=== PATIENT | female | born 1995 | race Caucasian/White ===

== ENCOUNTER 2016-12-22 01:18 | Emergency (ER) | payer BC ==
[2016-12-22] MEDS ORDERED: Lidocaine Viscous Sol 2% 15 ml UD Cup ONE (01:42)
[2016-12-22] MEDS ORDERED: Milk Of Magnesia 30 ML UDCUP ONE (01:42)
[2016-12-22] MEDS ORDERED: Mag-Al Plus 1200 MG/1200 MG/120 MG/30 ML UDCUP ONE (01:43)
== END 2016-12-22 01:44 | disposition home or self-care (01) ==
LOC: BURERS 01:18
DX: R11.2 Nausea with vomiting, unspecified (principal); E28.2 Polycystic ovarian syndrome; F17.210 Nicotine dependence, cigarettes, uncomplicated; Z79.899 Other long term (current) drug therapy
CPT/HCPCS: 99283

== ENCOUNTER 2017-02-01 16:05 | Emergency (ER) | payer BC ==
[2017-02-01] MEDS ORDERED: HYDROcodone/Acetaminophen 10/325 mg Tablet ONE (16:19)
[2017-02-01] MEDS ORDERED: Ibuprofen 800 MG TAB ONE (16:20)
--- NOTE | 2017-02-01 20:54 | RAD ---
RIGHT KNEE 3 VIEWS: ' Date: 02/01/17 No fracture, dislocation, or joint effusion was indicated. The joint space appears normal, as do the articular surfaces. IMPRESSION: No acute findings. POS: HOME
== END 2017-02-01 16:54 | disposition home or self-care (01) ==
LOC: BURERS 16:05
DX: S83.421A Sprain of lateral collateral ligament of right knee, initial encounter (principal); F41.9 Anxiety disorder, unspecified; F32.9 Major depressive disorder, single episode, unspecified; F17.210 Nicotine dependence, cigarettes, uncomplicated; X50.9XXA Other and unspecified overexertion or strenuous movements or postures, initial encounter

== ENCOUNTER 2017-06-16 21:51 | Emergency (ER) | payer BC ==
[2017-06-16] MEDS ORDERED: Azithromycin 250 MG TAB ONE (22:39)
== END 2017-06-16 22:40 | disposition home or self-care (01) ==
LOC: BURERS 21:51
DX: J20.9 Acute bronchitis, unspecified (principal); R07.81 Pleurodynia; E28.2 Polycystic ovarian syndrome; F17.210 Nicotine dependence, cigarettes, uncomplicated
CPT/HCPCS: 99284

== ENCOUNTER 2018-08-02 20:45 | Emergency (ER) | payer BC | END 2018-08-02 21:40 | disposition home or self-care (01) | LOC: BURERS 20:45 | DX: H72.92 Unspecified perforation of tympanic membrane, left ear (principal); F41.9 Anxiety disorder, unspecified; F32.9 Major depressive disorder, single episode, unspecified; F17.210 Nicotine dependence, cigarettes, uncomplicated | CPT/HCPCS: 99282 ==

== ENCOUNTER 2022-04-13 16:20 | Emergency (ER) | payer BC, OTHER, SELFPAY | END 2022-04-13 17:47 | disposition home or self-care (01) | LOC: BURERS 16:20 | DX: S63.501A Unspecified sprain of right wrist, initial encounter (principal); F17.210 Nicotine dependence, cigarettes, uncomplicated; X58.XXXA Exposure to other specified factors, initial encounter ==

== ENCOUNTER 2022-11-17 23:43 | Emergency (ER) | payer MEDICAID, OTHER ==
[2022-11-18 00:33] LABS: #Basophils 0.1 thou/uL (0.0-0.2); #Eosinphils 0.1 thou/uL (0.0-0.7); #Lymphocytes 3.3 thou/uL (1.20-3.40); #Monocytes 0.5 thou/uL (0.11-0.59); #Neutrophils 4.6 thou/uL (1.40-6.50); %Basophils 1.2 % (0.0-1.0); %Eosinophils 0.8 % (0.0-10.0); %Lymphocytes 38.9 % (21.0-51.0); %Monocytes 5.5 % (0.0-10.0); %Neutrophils 53.5 % (42.0-75.0); ALT (SGPT) 32 U/L (8-55); AST (SGOT) 23 U/L (5-34); Alkaline Phosphatase 56 U/L (40-110); Anion Gap 16 mmol/L (10-20); BUN (Urea Nitrogen) 10 mg/dL (7.0-18.7); Bilirubin, Total 0.4 mg/dL (0.2-1.2); Calc. Creatinine Clearance 0 mL/min (70-130); Calcium 8.7 mg/dL (7.8-10.44); Carbon Dioxide 19 mmol/L (22-29); Chloride 109 mmol/L (98-107); Estimated GFR 96; Globulin 3.2 g/dL (2.4-3.5); Glucose 132 mg/dL (70-105); Hematocrit 36.9 % (36.0-47.0); Hemoglobin 12.9 g/dL (12.0-16.0); Mean Corpuscular HGB CONC 34.9 g/dL (32.0-36.0); Mean Corpuscular Hemoglobin 29.8 pg (27.0-31.0); Mean Corpuscular Volume 85.4 fl (78.0-98.0); Mean Platelet Volume 8.3 fL (7.4-10.4); Platelet Count 231 10x3/uL (130-400); Potassium 3.9 mmol/L (3.5-5.1); Protein, Total 7.2 g/dL (6.0-8.3); RBC Distribution Width 11.7 % (11.5-14.5); Red Blood Cell (RBC) Count 4.32 mill/uL (4.20-5.40); Sodium 140 mmol/L (136-145); Troponin I Less than 0.010 ng/mL (< 0.028); White Blood Cell (WBC) Count 8.5 10x3/uL (4.8-10.8)
== END 2022-11-18 01:20 | disposition home or self-care (01) ==
LOC: BURERS 23:43
DX: I49.3 Ventricular premature depolarization (principal); F17.210 Nicotine dependence, cigarettes, uncomplicated
CPT/HCPCS: 71045; 80053; 84484; 85025; 85379; 93005; 94760